=== PATIENT | male | born 1940 | race Caucasian/White ===

== ENCOUNTER 2016-11-23 11:33 | Inpatient (IN) | payer MEDICARE ==
[~2016-11-23] VITALS: Ht 180.3 cm; Wt 107.7 kg
[~2016-11-23 11:33] MED LIST: BENI40TA3 PO; LEVO-86 PO
[2016-11-27] VITALS (7 sets, daily range): BP systolic 137–149; BP diastolic 75–91; PULSE 73–82; RESP 16–17; TEMP 97.5–97.8; O2SAT 94–98
[2016-11-27] MEDS ORDERED: NEOSTIGMINE 3 MG/3 ML SYR IV ONE (12:00)
[2016-11-27] MEDS ORDERED: ONDANSETRON HCL 4 MG/2 ML VIAL IV PUSH ONE (12:00)
[2016-11-27] MEDS ORDERED: ePHEDrine/NS 50 MG/5 ML SYR IV ONE (12:00)
[2016-11-27] MEDS ORDERED: NORMOSOL R INJ 1,000 ML IV ONE (12:00)
[2016-11-27] MEDS ORDERED: PHENYLEPH/NS 1000 MCG/10 ML SYR IV ONE (12:00)
[2016-11-27] MEDS ORDERED: PROPOFOL 200 MG/20 ML AMP IV ONE (12:00)
[2016-11-27] MEDS ORDERED: METOPROLOL TARTRATE 25 MG TAB PO PRN (12:15)
[2016-11-27] MEDS ORDERED: LACTATED RINGER'S 1000 ML IV SCH (12:15)
[2016-11-27] MEDS ORDERED: ceFAZolin 1,000 MG/NS 100 ML IV SCH ×2 (12:15)
[2016-11-27] MEDS ORDERED: SODIUM CHLORID 0.9% 500 ML IV SCH (12:15)
[2016-11-27] MEDS ORDERED: INSULIN HUMAN REGULAR 1,000 UNITS/10 ML VIAL SQ PRN (12:15)
[2016-11-27 12:49] LABS: APTT (PATIENT) 27.3 SEC (24.3-30.1); PROTHROMBIN TIME - PATIENT 11.2 SEC (9.8-11.6)
[2016-11-27] MEDS ORDERED: VANCOMYCIN HCL 1000 MG VIAL ONE (13:49)
[2016-11-27] MEDS ORDERED: PROTAMINE SULFATE 50 MG/5 ML VIAL ONE (13:49)
[2016-11-27] MEDS ORDERED: HEPARIN SODIUM - IV 10,000 UNITS/10 ML VIAL ONE (13:49)
[2016-11-27] MEDS ORDERED: ACETAMINOPHEN 1000 MG/100 ML VIAL IV ONE (14:17)
[2016-11-27] MEDS ORDERED: FAMOTIDINE 20 MG/2 ML VIAL ONE (14:18)
[2016-11-27] MEDS ORDERED: MIDAZOLAM HCL 2 MG/2 ML VIAL ONE (14:18)
[2016-11-27] MEDS ORDERED: HYDROmorphone HCL PF 2 MG/ML VIAL ONE (14:18)
[2016-11-27] MEDS ORDERED: BUPIVACAINE/EPINEPHRINE 0.25% PF 30 ML VIAL ONE (14:48)
[2016-11-27] MEDS: HEPARIN SODIUM - SQ 10,000 UNITS/ML VIAL ONE ×2 (15:27→16:05)
[2016-11-27] MEDS ORDERED: IOHEXOL 350 MG/ML 100 ML BTL (for RAD DIAG) OTHER ONE (15:27)
[2016-11-27] MEDS ORDERED: fentaNYL CITRATE 250 MCG/5 ML AMP ONE (17:34)
[2016-11-27] MEDS ORDERED: *morphine SULFATE 8 MG/ML PERIprocedure ONLY ONE (17:44)
[2016-11-27] MEDS ORDERED: LACTATED RINGER'S 500 ML INJ IV SCH (18:15)
[2016-11-27] MEDS ORDERED: MORPHINE SULFATE 4 MG/ML INJ IV PRN (18:15)
[2016-11-27] MEDS ORDERED: ACETAMINOPHEN/HYDROcodone 325 MG/5 MG TAB PO PRN (18:15)
[2016-11-27] MEDS ORDERED: SODIUM CHLORIDE 0.9% FLUSH 5 ML FLUSH IV FLUSH PRN (18:15)
[2016-11-27] MEDS ORDERED: ONDANSETRON HCL 4 MG/2 ML VIAL IV PUSH PRN (18:15)
[2016-11-27] MEDS ORDERED: ACETAMINOPHEN 325 MG TAB PO PRN (18:15)
[2016-11-27] MEDS ORDERED: DO NOT ADM ANY ANTICOAGULANT DRUGS XX PRN (18:30)
[2016-11-27] MEDS: SODIUM CHLORIDE 0.9% FLUSH 5 ML FLUSH IV FLUSH SCH (20:54)
--- NOTE | 2016-11-27 21:18 | MP ---
cc: JESSENIA BE DATE OF SURGERY: 11/27/2016 PREOPERATIVE DIAGNOSIS: Abdominal aortic aneurysm POSTOPERATIVE DIAGNOSIS: Abdominal aortic aneurysm OPERATION: Endovascular aneurysm repair. SURGEON: Salome Be MD. DIRECTOR OF CORPORATE REAL ESTATE: FRANCISCO Orr. ANESTHESIA General endotracheal/local. DESCRIPTION OF OPERATIVE PROCEDURE: With the patient in the supine position, general endotracheal anesthesia was induced, the abdomen prepped with Betadine and draped in a sterile fashion. One gram of Ancef was administered intravenously and following a protocol time-out, the skin and subcutaneous tissues at the proposed right and left common femoral access site preemptively infiltrated with 0.5% Marcaine with epinephrine. The right and left common femoral arteries were accessed identically as follows: Utilizing ultrasound guidance, 18 gauge needles were inserted into the mid common femoral lumens followed by deployment of J-wires under fluoroscopic guidance into the iliac arteries. 7-Citizen [place] hemostatic sheaths were deployed over the J-wires. Angled glide wires were then negotiated under fluoroscopic guidance into the suprarenal aorta. Perclose devices were then pre-positioned at the 10 and 2 o'clock positions bilaterally. The angled glide wires were exchanged over Berenstein catheters for Amplatz guidewires and 18 and 12-Citizen [place] hemostatic sheaths guided via the right and left femoral approaches respectively. The patient was systemically heparinized with 5000 units. ACT measured in the 230s. An additional 1000 units of heparin was administered to bring ACT about 250. A marker pigtail catheter was guided via the left femoral sheath into the suprarenal aorta and flush aortogram accomplished accurately delineating the origins of the renal arteries. The main body endoprosthesis was pre-positioned and pre-deployed immediately distal to the origin of the renal arteries. The contralateral gate was cannulated with an angled glide, Berenstein catheter. An aortic balloon was inserted into the endoprosthesis and partially inflated to ensure intraluminal localization. Retrograde left femoral sheath injection with a marker pigtail in place allowed accurate measurements for the contralateral limb which was then deployed. Repeat aortogram redefined the renal artery origins as well as allowing identification of the right common iliac bifurcation. Complete deployment of the endoprosthesis was then accomplished followed by balloon dilatation of the aortic, iliac seal zones and overlapped areas. Completion angiogram revealed no technical defects or evidence of the endoleaks. The right and left femoral sheaths were then removed and hemostasis achieved with the pre-positioned Perclose devices. Heparin was reversed with 25 mg of protamine and strict hemostasis achieved. Pedal pulses remained robust bilaterally. Fluoro time was 11.6 minutes. Total contrast was 60 cc. The patient returned to the Recovery Room in stable condition having tolerated the procedure well. MD DONALD Noyola/LUIZ /5:37 PM /8:58 PM
[2016-11-28] VITALS (14 sets, daily range): BP systolic 120–145; BP diastolic 74–88; PULSE 71–89; RESP 17; TEMP 97.6–97.9; O2SAT 94–98
--- NOTE | 2016-11-28 00:04 | EKG ---
Date Performed: 11/27/2016 Time Performed: 11:58:27 PTAGE: 76 years EKG: ECTOPIC ATRIAL RHYTHM ST DEVIATION AND MODERATE T-WAVE ABNORMALITY, CONSIDER LATERAL ISCHEM IA ABNORMAL ECG NO PREVIOUS TRACING DOCTOR: Abdoul iWlson Interpretating Date/Time 11/27/2016 23:58:30
[2016-11-28] MEDS ORDERED: LEVOTHYROXINE SODIUM 25 MCG TAB PO SCH (06:00)
[2016-11-28] MEDS ORDERED: LEVOTHYROXINE SODIUM 112 MCG TAB PO SCH (06:00)
[2016-11-28] MEDS: SODIUM CHLORIDE 0.9% FLUSH 5 ML FLUSH IV FLUSH SCH (08:42)
[2016-11-28] MEDS ORDERED: LOSARTAN 50 MG TAB PO SCH (09:00)
== END 2016-11-28 13:57 | disposition home or self-care (01) | DRG 269 ==
LOC: HSDI 11-27 11:31 → HCIN 11-27 18:29
PROVIDERS: ADMIT Surgery Vascular Surgery; ATTEND Surgery Vascular Surgery
PROC: 04V03DZ Restriction of Abdominal Aorta with Intraluminal Device, Percutaneous Approach (ICD-10-PCS; principal; 2016-11-27 14:30)
DX: I71.4 Abdominal aortic aneurysm, without rupture (principal); G91.2 (Idiopathic) normal pressure hydrocephalus; K80.10 Calculus of gallbladder with chronic cholecystitis without obstruction; F33.9 Major depressive disorder, recurrent, unspecified; E11.22 Type 2 diabetes mellitus with diabetic chronic kidney disease; E66.01 Morbid (severe) obesity due to excess calories; N18.1 Chronic kidney disease, stage 1; I12.9 Hypertensive chronic kidney disease with stage 1 through stage 4 chronic kidney disease, or unspecified chronic kidney disease; I70.209 Unspecified atherosclerosis of native arteries of extremities, unspecified extremity; E06.3 Autoimmune thyroiditis; M06.9 Rheumatoid arthritis, unspecified; M10.9 Gout, unspecified; K76.89 Other specified diseases of liver; Z68.33 Body mass index [BMI] 33.0-33.9, adult; Z79.4 Long term (current) use of insulin
CPT/HCPCS: 36415; 75625; 85610; 85730; 86850; 86900; 86901; 86920; 93005; C1725; C1769; J0131; J0690; J1170; J1644; J2250; J2270; J2370; J2405; J2710; J2720; J3010; J3370; J7120; Q9967

== ENCOUNTER → 2016-11-30 | Outpatient (CLI) | payer MEDICARE ==
[2016-11-30 11:20] LABS: MEAN CELL VOLUME 92.2 FL (80.0-100.0); MEAN CORPUSCULAR HEMOGLOBIN 31.6 PG (27.0-34.0); MEAN CORPUSCULAR HGB CONC 34.3 % (32.0-36.0); PLATELET COUNT 169 TH/MM3 (150-450); RED BLOOD COUNT 4.44 MIL/MM3 (4.50-5.90); RED CELL DISTRIBUTION WIDTH 13.6 % (11.6-17.2); REVIEW FLAG FINAL; WHITE BLOOD COUNT 8.3 TH/MM3 (4.0-11.0)
[2016-11-30 11:35] LABS: BICARBONATE 29.3 MEQ/L (21.0-32.0); POTASSIUM 4.7 MEQ/L (3.5-5.1)
[2016-11-30 11:38] LABS: INDIRECT BILIRUBIN 0.7 MG/DL (0.0-0.8); TOTAL BILIRUBIN ADULT 0.9 MG/DL (0.2-1.0)
== END ==
LOC: ELAB 10:12
PROVIDERS: ATTEND Surgery Vascular Surgery
DX: R79.89 Other specified abnormal findings of blood chemistry (principal); K81.1 Chronic cholecystitis; I10 Essential (primary) hypertension; E78.5 Hyperlipidemia, unspecified
CPT/HCPCS: 36415; 80048; 80076; 82150; 83690; 85027

== ENCOUNTER → 2016-12-13 | Day surgery (SDC) | payer MEDICARE ==
[~2016-12-13] VITALS: Ht 180.3 cm; Wt 104.9 kg
[~2016-12-13] MED LIST changes: +ACETAMINOPHEN 1000 MG/100 ML VIAL IV ONE; +ACETAMINOPHEN/HYDROcodone 325 MG/7.5 MG TAB PO PRN; +BUPIVACAINE/EPINEPHRINE 0.5% 50 ML VIAL ONE; +DEXAMETHASONE SOD PHOS 4 MG/ML VIAL ONE; +DO NOT ADM ANY ANTICOAGULANT DRUGS XX PRN; +FAMOTIDINE 20 MG/2 ML VIAL ONE; +HYDROmorphone HCL PF 2 MG/ML VIAL IV PRN; +INSULIN HUMAN REGULAR 1,000 UNITS/10 ML VIAL SQ PRN; +IOHEXOL 300 MG/ML 50 ML BTL (for RAD DIAG) OTHER ONE; +KETOROLAC TROMETHAMINE 60 MG/2 ML (IM) VIAL IM ONE; +LACTATED RINGER'S 1000 ML INJ 1,000 ML IV ONE; +LACTATED RINGER'S 1000 ML IV SCH; +METOPROLOL TARTRATE 25 MG TAB PO PRN; +MIDAZOLAM HCL 2 MG/2 ML VIAL ONE; +NEOSTIGMINE 3 MG/3 ML SYR IV ONE; +ONDANSETRON HCL 4 MG/2 ML VIAL IV PRN; +ONDANSETRON HCL 4 MG/2 ML VIAL IV PUSH ONE; +PHENYLEPH/NS 1000 MCG/10 ML SYR IV ONE; +PROPOFOL 200 MG/20 ML AMP IV ONE; +SODIUM CHLORID 0.9% 500 ML IV SCH; +ePHEDrine/NS 50 MG/5 ML SYR IV ONE; +fentaNYL CITRATE 250 MCG/5 ML AMP ONE
[2016-12-13 09:00] VITALS: BP 137/86; PULSE 80; RESP 16; TEMP 97.8; O2SAT 97
[2016-12-13 09:28] LABS: AUTOMATED NEUTROPHIL # 3.4 TH/MM3 (1.8-7.7); BASOPHIL # 0.1 TH/MM3 (0-0.2); EOSINOPHIL # 0.1 TH/MM3 (0-0.4); EOSINOPHIL % 1.7 % (0.0-4.0); HEMATOCRIT 43.4 % (39.0-51.0); HEMO FLAGS DIFF FINAL; LYMPH % 33.3 % (9.0-44.0); MEAN CELL VOLUME 92.2 FL (80.0-100.0); MEAN CORPUSCULAR HEMOGLOBIN 31.9 PG (27.0-34.0); MEAN CORPUSCULAR HGB CONC 34.6 % (32.0-36.0); MONO % 7.9 % (0.0-8.0); NEUT % 56.1 % (16.0-70.0); PLATELET COUNT 243 TH/MM3 (150-450); RED BLOOD COUNT 4.71 MIL/MM3 (4.50-5.90); RED CELL DISTRIBUTION WIDTH 13.4 % (11.6-17.2)
[2016-12-13] MEDS: ceFAZolin 1,000 MG/NS 100 ML IV SCH ×4 (10:15→11:12)
[2016-12-13 13:51] VITALS: BP 130/70; PULSE 88; RESP 18; TEMP 97; O2SAT 97
--- NOTE | 2016-12-13 14:30 | RADRPT ---
EXAM DATE/TIME: 12/13/2016 11:44 [facility] COMPARISON: No previous studies available for comparison. INDICATIONS : Cholecystitis. FLUORO TIME: 0.3 minutes IMAGE COUNT: 2 MEDICAL HISTORY : None. SURGICAL HISTORY : None. ENCOUNTER: Initial ACUITY: 1 day PAIN SCORE: Non-responsive. LOCATION: Abdomen. PROCEDURE: CHOLANGIOGRAM, OPERATIVE 1. Intraoperative cholangiogram. In the operating room, the cystic duct stump was injected and radiographs obtained. The examination demonstrates contrast in the common bile duct which is nondilated. There is flow into the small bowel. No definite filling defects are demonstrated. CONCLUSION: No evidence of common duct stone. Darrell West MD on December 13, 2016 at 14:27 Board Certified Radiologist. This report was verified electronically.
--- NOTE | 2016-12-18 20:29 | MP ---
cc: JESSENIA BE ARNOLD M.D. DHAND, ARUN M.D. DATE OF SURGERY: 12/13/2016. PREOPERATIVE DIAGNOSIS: Symptomatic cholelithiasis, chronic cholecystitis. POSTOPERATIVE DIAGNOSIS: Symptomatic cholelithiasis, chronic cholecystitis. OPERATIVE PROCEDURE PERFORMED: Laparoscopic cholecystectomy with intraoperative cholangiogram. SURGEON: Jessenia Be M.D. ANESTHESIA: General endotracheal. DESCRIPTION OF THE OPERATIVE PROCEDURE IN DETAIL: With the patient in the supine position, general endotracheal anesthesia was induced. The abdomen was prepped with Betadine and draped in a sterile fashion. One gram of Ancef was administered intravenously, and following a protocol time-out, the skin and subcutaneous tissue at the four separate proposed trocar placement sites was preemptively infiltrated with 0.5% Marcaine with epinephrine. A curvilinear 1 cm incision was performed within the infraumbilical skin fold. A small umbilical hernia defect was exposed, traction placed upon the fascia and a 5 mm Surgiport bluntly advanced through the small umbilical defect into the peritoneal space. The abdomen was insufflated with carbon dioxide. A 5 mm Surgiport was replaced with 10 mm Surgiport through which a laparoscope was introduced. A 10 and two 5 mm Surgiports were introduced through separate incisions along the right subcostal area. The gallbladder was encased within omental adhesions. The omentum was carefully dissected free of the gallbladder surface and the gallbladder fundus retracted superolaterally. With continued dissection, the triangle of Fallot was carefully exposed. Utilizing the infundibular approach and creating the critical view of safety, the cystic duct and artery were circumferentially mobilized and definitively identified. The cystic duct was Endo clipped. A partial transverse cystic ductotomy was performed. A Ranfac cholangiocatheter was introduced into the cystic duct lumen and secured with an Endo clip. Digital fluoroscopic cholangiography revealed no biliary ductal abnormalities. The cholangiocatheter was then removed. The cystic duct was doubly Endo clipped and divided distal to the Endo clips. The cystic artery which was small was simply electrocoagulated and divided. The gallbladder was then dissected free of the hepatic bed in a retrograde fashion, bleeding controlled with electrocautery. Subhepatic space was irrigated. Strict hemostasis and absence of bile leak was assured. The gallbladder was delivered through the umbilical incision. The umbilical hernia and fascial defect was closed with interrupted 0-PDS. The skin was reapproximated with four trocar sites with interrupted subcuticular 5-0 Monocryl, reinforced with Steri-Strips and covered with sterile gauze. Instrument, needle, sponge counts were correct x2. No operative complications. The patient was returned to the recovery room in stable condition having tolerated procedure well. MD DONALD Noyola/SCOTTY /4:22 PM /8:21 PM
== END | disposition home or self-care (01) ==
LOC: HSDC 08:50
PROVIDERS: ATTEND Surgery Vascular Surgery
DX: K80.10 Calculus of gallbladder with chronic cholecystitis without obstruction (principal)
CPT/HCPCS: 00790; 47562; 74300; 85025; 88304; J0131; J0690; J1100; J1885; J2250; J2370; J2405; J2710; J3010; J7120; Q9967